=== PATIENT | female | born 1980 | race American Indian/Alaskan Native ===

== ENCOUNTER 2017-01-08 22:44 | Emergency (ER) | payer SELFPAY ==
[2017-01-08 23:51] LABS: Hematocrit 33.6 % (30.3-42.9); Hemoglobin 10.9 gm/dl (10.1-14.3); Mean Corpuscular HGB Conc 33 % (30-34); Mean Corpuscular Hemoglobin 23 pg (28-32); Mean Corpuscular Volume 69 fl (79-97); Red Blood Count 4.87 M/mm3 (3.65-5.03); White Blood Count 9.8 K/mm3 (4.5-11.0)
[2017-01-08 23:55] LABS: Anion Gap 19 mmol/L; BUN/Creatinine Ratio 17.14; Blood Urea Nitrogen 12 mg/dL (7-17); Carbon Dioxide 22 mmol/L (22-30); Glucose 111 mg/dL (65-100); Potassium 3.7 mmol/L (3.6-5.0); Sodium 135 mmol/L (137-145)
[2017-01-09 00:31] LABS: Platelet Count 173 K/mm3 (140-440)
[2017-01-09 00:32] LABS: Basophils % (Auto) 0.6 % (0.0-1.8); Eosinophils % (Auto) 1.6 % (0.0-4.3)
[2017-01-09 00:33] LABS: Diff Status Complete
[2017-01-09 01:12] LABS: Bilirubin,Urine NEG (Negative); Blood,Urine NEG (Negative); Ketones,Urine TR mg/dL (Negative); Leukocyte Esterase,Urine NEG (Negative); Mucus,Urine 1+ /HPF; Nitrite,Urine NEG (Negative)
--- NOTE | 2017-01-09 02:25 | XRay Report ---
FINAL REPORT PROCEDURE: XR CHEST ROUTINE 2V TECHNIQUE: PA and lateral chest radiographs were obtained. CPT 86281 HISTORY: COUGHING COMPARISON: No prior studies are available for comparison. FINDINGS: Heart: Normal. Mediastinum/Vessels: Normal. Lungs/Pleural space: Normal. Bony thorax: No acute osseous abnormality. Other: IMPRESSION: There is no evidence of an acute cardiopulmonary process..
--- NOTE | 2017-01-09 02:37 | Emergency Department Report ---
HPI - General Chief Complaint: Upper Respiratory Infection Time Seen by Provider: 01/09/17 02:14 - HPI HPI: Patient here reports that she is having runny nose, sore throat, facial congestion over the last week and a half but now she is having nonproductive cough with body aches over the last 2 days. She says she's been having a little bit of nausea and no vomiting. Denies any diarrhea. Denies any drooling or difficulty breathing. Denies any shortness of breath. Throat pain with cough and is not at a 10 generalized body ache is 9 out of 10. She says she took [id number] cough and cold without any relief. Last menstrual period was 01/01/2017. She denies any medical history. Patient has SX history of cholecystectomy and breast reduction, tubal ligation and right knee surgery and tonsillectomy. Denies any chest pain. ED Past Medical Hx - Past Medical History Previous Medical History?: No - Surgical History Past Surgical History?: Yes Hx Cholecystectomy: Yes Additional Surgical History: BREAST REDUCTION / TUBAL LIGATION / RIGHT KNEE / TONSILECTOMY - Family History Family history: hypertension - Social History Smoking Status: Never Smoker Substance Use Type: None - Medications Home Medications: Home Medications Medication Instructions Recorded Confirmed Last Taken Type Amoxicillin/K Clav Tab [Augmentin 1 tab PO Q12HR #14 tab 01/09/17 Unknown Rx 875 mg] Cetirizine HCl [ZyrTEC] 10 mg PO QDAY #14 capsule 01/09/17 Unknown Rx Fluticasone [Flonase] 1 spray NS QDAY #1 bottle 01/09/17 Unknown Rx Ibuprofen [Motrin] 600 mg PO Q8H PRN #12 tablet 01/09/17 Unknown Rx guaiFENesin/CODEINE [Robitussin AC] 5 ml PO QHS PRN #50 ml 01/09/17 Unknown Rx ED Review of Systems ROS: Stated complaint: BODY ACHE/PAIN Other details as noted in HPI Comment: All other systems reviewed and negative Constitutional: denies: chills, fever Eyes: denies: eye discharge ENT: throat pain, congestion, other (Facial pain and pressure with clogged ears) . denies: ear pain, dental pain, hearing loss Respiratory: cough. denies: orthopnea, shortness of breath, SOB with exertion, SOB at rest, stridor, wheezing Cardiovascular: denies: chest pain, palpitations, edema, syncope Gastrointestinal: nausea. denies: abdominal pain, vomiting, diarrhea Musculoskeletal: denies: back pain, arthralgia, myalgia Skin: denies: rash Neurological: denies: headache, weakness, numbness, paresthesias, confusion, abnormal gait, vertigo Physical Exam - Physical Exam Vital Signs: Vital Signs 01/08/17 23:00 Temperature 99.3 F Pulse Rate 102 H Respiratory 18 Rate Blood Pressure 128/85 O2 Sat by Pulse 98 Oximetry General: This is a 36-year-old female well-nourished well-developed in no acute distress. Physical Exam: Head: Normocephalic atraumatic Mouth: Moist, uvula midline, no pharyngeal exudate or erythema. No tonsillar enlargement. Oral airways patent. Tongue is normal. Neck: Supple, full range of motion. No C-spine tenderness .no enlarged lymph nodes Ears:BIateral TM congested without erythema. Bilateral EAC without any redness swelling or drainage. Nose: Bilateral nasal mucosa Congested and erythema with clear drainage. Maxillary and frontal sinuses tender to palpate. Eyes: Sclerae/conjunctiva without injection. Bilateral pupils equal and reactive to light. Bilateral lids are normal. Normal accommodation. Bilateral EOM intact. Lungs: Clear to auscultate bilaterally, no rhonchi wheezes or rales. Normal work of breathing and no chest wall tenderness. CV: S1, S2. Tachycardia at 102 ,Regular rhythm negative murmur. Capillary refill is less than 3 seconds Skin: Clean dry and intact, no rashes or lesions Psych: Normal mood and behavior ED Course Vital Signs 01/08/17 23:00 Temperature 99.3 F Pulse Rate 102 H Respiratory 18 Rate Blood Pressure 128/85 O2 Sat by Pulse 98 Oximetry Vital Signs 01/08/17 01/09/17 01/09/17 23:00 02:36 03:06 Temperature 99.3 F Pulse Rate 102 H 98 H Respiratory 18 18 Rate Blood Pressure 128/85 O2 Sat by Pulse 98 Oximetry - Reevaluation(s) Reevaluation #1: 01/09/17 03:53 Patient received Motrin 800 mg by mouth and Deltasone 60 mg by mouth in emergency room. ED Medical Decision Making - Lab Data Result diagrams: 01/08/17 23:14 01/08/17 23:14 Lab Results 01/08/17 01/08/17 01/08/17 Range/Units 23:14 23:14 23:14 WBC 9.8 (4.5-11.0) K/mm3 RBC 4.87 (3.65-5.03) M/mm3 Hgb 10.9 (10.1-14.3) gm/dl Hct 33.6 (30.3-42.9) % MCV 69 L (79-97) fl MCH 23 L (28-32) pg MCHC 33 (30-34) % RDW 16.0 H (13.2-15.2) % Plt Count 173 (140-440) K/mm3 Lymph % (Auto) 23.6 (13.4-35.0) % Blount % (Auto) 6.8 (0.0-7.3) % Eos % (Auto) 1.6 (0.0-4.3) % Baso % (Auto) 0.6 (0.0-1.8) % Lymph # 2.3 (1.2-5.4) K/mm3 Blount # 0.7 (0.0-0.8) K/mm3 Eos # 0.2 (0.0-0.4) K/mm3 Baso # 0.1 (0.0-0.1) K/mm3 Add Manual Diff Complete Seg Neutrophils % 67.4 (40.0-70.0) % Seg Neutrophils # 6.6 (1.8-7.7) K/mm3 Sodium 135 L (137-145) mmol/L Potassium 3.7 (3.6-5.0) mmol/L Chloride 98.0 (98-107) mmol/L Carbon Dioxide 22 (22-30) mmol/L Anion Gap 19 mmol/L BUN 12 (7-17) mg/dL Creatinine 0.7 (0.7-1.2) mg/dL Estimated GFR > 60 ml/min BUN/Creatinine Ratio 17.14 % Glucose 111 H (65-100) mg/dL Calcium 9.0 (8.4-10.2) mg/dL HCG, Qual Negative (Negative) Urine Color (Yellow) Urine Turbidity (Clear) Urine pH (5.0-7.0) Ur Specific Graff (1.003-1.030) Urine Protein (Negative) mg/dL Urine Glucose (UA) (Negative) mg/dL Urine Ketones (Negative) mg/dL Urine Blood (Negative) Urine Nitrite (Negative) Urine Bilirubin (Negative) Urine Urobilinogen (<2.0) mg/dL Ur Leukocyte Esterase (Negative) Urine WBC (Auto) (0.0-6.0) /HPF Urine RBC (Auto) (0.0-6.0) /HPF U Epithel Cells (Auto) (0-13.0) /HPF Urine Mucus /HPF 01/09/17 Range/Units 00:27 WBC (4.5-11.0) K/mm3 RBC (3.65-5.03) M/mm3 Hgb (10.1-14.3) gm/dl Hct (30.3-42.9) % MCV (79-97) fl MCH (28-32) pg MCHC (30-34) % RDW (13.2-15.2) % Plt Count (140-440) K/mm3 Lymph % (Auto) (13.4-35.0) % Blount % (Auto) (0.0-7.3) % Eos % (Auto) (0.0-4.3) % Baso % (Auto) (0.0-1.8) % Lymph # (1.2-5.4) K/mm3 Blount # (0.0-0.8) K/mm3 Eos # (0.0-0.4) K/mm3 Baso # (0.0-0.1) K/mm3 Add Manual Diff Seg Neutrophils % (40.0-70.0) % Seg Neutrophils # (1.8-7.7) K/mm3 Sodium (137-145) mmol/L Potassium (3.6-5.0) mmol/L Chloride (98-107) mmol/L Carbon Dioxide (22-30) mmol/L Anion Gap mmol/L BUN (7-17) mg/dL Creatinine (0.7-1.2) mg/dL Estimated GFR ml/min BUN/Creatinine Ratio % Glucose (65-100) mg/dL Calcium (8.4-10.2) mg/dL HCG, Qual (Negative) Urine Color [place] (Yellow) Urine Turbidity Clear (Clear) Urine pH 5.0 (5.0-7.0) Ur Specific Graff 1.031 H (1.003-1.030) Urine Protein 30 mg/dl (Negative) mg/dL Urine Glucose (UA) Neg (Negative) mg/dL Urine Ketones Tr (Negative) mg/dL Urine Blood Neg (Negative) Urine Nitrite Neg (Negative) Urine Bilirubin Neg (Negative) Urine Urobilinogen 4.0 (<2.0) mg/dL Ur Leukocyte Esterase Neg (Negative) Urine WBC (Auto) 1.0 (0.0-6.0) /HPF Urine RBC (Auto) 2.0 (0.0-6.0) /HPF U Epithel Cells (Auto) 3.0 (0-13.0) /HPF Urine Mucus 1+ /HPF - Radiology Data Radiology results: report reviewed Chest x-ray revealed no acute cardiopulmonary processes - Medical Decision Making ED course: Discussed the patient that she has a sinus infection that started off as viral upper respiratory and since she's been having symptoms for over a week and a half Wii go ahead and start her on some antibiotic. Motrin 800 mg in the emergency room for body ache and sore throat and Decadron 60 mg by mouth. I gave her her lab results and informed her that she is not but she has mild dehydration which she will have to increase her fluid intake to at least 2-3 L of water per day until feeling better then at least 2 L of fluid daily. Patient was undescended discharge instruction and treatment plan and discharged home with prescription for Augmentin, Motrin, Flonase, Zyrtec and guaifenesin with codeine daily at bedtime when necessary. Critical care attestation.: If time is entered above; I have spent that time in minutes in the direct care of this critically ill patient, excluding procedure time. ED Disposition Clinical Impression: Cough Acute sinusitis Qualifiers: Sinusitis location: unspecified location Recurrence: not specified as recurrent Qualified Code(s): J01.90 - Acute sinusitis, unspecified Pharyngitis Qualifiers: Pharyngitis/tonsillitis etiology: unspecified etiology Qualified Code(s): J02.9 - Acute pharyngitis, unspecified Disposition: DC-01 TO HOME OR SELFCARE Is pt being admited?: No Does the pt Need Aspirin: No Condition: Stable Instructions: Sinusitis (ED), Pharyngitis (ED), Acute Cough (ED) Additional Instructions: Please follow up with primary care as recommended Please do not drive or operate heavy machinery while taking guaifenesin with codeine cough syrup as this medication causes drowsiness Increase fluid intake Take medication as prescribed . Flush nostrils out with saline nasal spray as this will relieve congestion Prescriptions: guaiFENesin/CODEINE [Robitussin AC] 5 ml PO QHS PRN #50 ml PRN Reason: Cough Amoxicillin/K Clav Tab [Augmentin 875 mg] 1 tab PO Q12HR #14 tab Cetirizine HCl [ZyrTEC] 10 mg PO QDAY #14 capsule Fluticasone [Flonase] 1 spray NS QDAY #1 bottle Ibuprofen [Motrin] 600 mg PO Q8H PRN #12 tablet PRN Reason: Pain Referrals: PRIMARY CARE, [Primary Care Provider] - 3-5 Days [facility] [Outside] - 3-5 Days Forms: Work/School Release Form(ED)
[2017-01-09] MEDS ORDERED: DELTASONE PO ONE (02:45)
[2017-01-09] MEDS ORDERED: MOTRIN PO ONE (02:45)
[2017-01-09 04:22] VITALS: BP 138/61
== END 2017-01-09 04:20 | disposition home or self-care (01) ==
LOC: ED 22:44
DX: J01.90 Acute sinusitis, unspecified (principal); J02.9 Acute pharyngitis, unspecified
CPT/HCPCS: 36415; 71020; 80048; 81001; 84703; 85025; 99284; J7512